=== PATIENT | female | born 1975 | race Hispanic/Latino ===

== ENCOUNTER 2016-07-15 01:13 | Emergency (ER) | payer OTHER ==
[~2016-07-15] VITALS: Ht 157.5 cm; Wt 83.9 kg
[~2016-07-15 01:13] MED LIST: ACET50TA PO; IBUP80TA PO; PRENTAB40 PO
[2016-07-15] MEDS ORDERED: GI COCKTAIL 50ML BTL(HYOSCYAMINE/MAALOX/LIDOCAINE VISCOUS)(1:3:1) PO ONE (02:30)
[2016-07-15] MEDS ORDERED: PRIL20CA9 PO (02:33)
[2016-07-15 03:09] VITALS: BP 128/82
--- NOTE | 2016-07-15 05:55 | ECGEPIP ---
Stationary ECG Study [facility] - ED Test Date: 2016-07-15 Pat Name: DANIEL JUAN Department: Room: - Gender: F Pearl Hand: jaqui : 1975 Requested By: LELAND REID Order Number: [id number] Reading MD: Ethan Altman Measurements Intervals [place] Rate: 71 P: 45 RI: 143 QRS: 14 QRSD: 86 T: 23 QT: 363 QTc: 395 Interpretive Statements SINUS RHYTHM Electronically Signed On 07-15-2016 5:55:08 EDT by Ethan Altman
== END 2016-07-15 03:11 | disposition home or self-care (01) ==
LOC: M ED 02:50
DX: K21.9 Gastro-esophageal reflux disease without esophagitis (principal)